=== PATIENT | female | born 1970 | race Caucasian/White ===

== ENCOUNTER 2019-07-29 18:52 | Emergency (ER) | payer SELFPAY ==
[2019-07-29 19:33] VITALS: BP 128/76; PULSE 108; RESP 14; TEMP 37; O2SAT 98
--- NOTE | 2019-07-29 19:39 | ED.URI ---
HPI - URI/Sore Throat General Chief Complaint: Upper Respiratory Infection Stated Complaint: Cough/Body aches/fever Time Seen by Provider: 07/29/19 19:39 Source: patient and RN notes reviewed Mode of arrival: ambulatory Limitations: no limitations History of Present Illness HPI Narrative: 48-year-old female with history of smoking and bronchitis presents with concern for body aches, chills, barking cough that started today. She reports symptoms started with an episode of emesis this morning that she feels like she choked on. She denies rhinorrhea, nasal congestion. Denies take any medications for symptoms MD elicited complaint: cough Related Data Home Medications Medication Instructions Recorded Confirmed venlafaxine [Effexor XR] 75 mg PO DAILY 07/29/19 07/29/19 Allergies Allergy/AdvReac Type Severity Reaction Status Date / Time codeine Allergy Unknown Itching Verified 07/29/19 19:41 Review of Systems Review of Systems: Narrative: CONSTITUTIONAL: Reports malaise, chills, sweats, tactile fever. EYES: Denies visual changes, redness, or discharge. ENT: Denies rhinorrhea, congestion, sinus pain, otalgia and sore throat. CARDIOVASCULAR: Denies chest pain, palpitations, or edema. RESPIRATORY: Reports cough. Denies dyspnea. GASTROINTESTINAL: Denies abdominal pain, nausea, vomiting, diarrhea SKIN: Denies rash or itching. MUSCULOSKELETAL: Reports myalgia. NEUROLOGIC: Denies headache. All systems reviewed & are unremarkable except as noted in HPI and below PMFSH Family History Family History (Updated 10/10/16 @ 09:19 by DOCTOR UNKNOWN) Sibling Family history of schizophrenia Family history of chronic obstructive pulmonary disease Family history of emphysema Mother Depression Family history of Alzheimer's disease Father Family history of lung cancer Other Cerebrovascular accident Diabetes mellitus Family history of allergic disorder Family history of malignant neoplasm Hypertension Social History Social History Smoking status: Current every day smoker Alcohol intake: current Comments At time of signature, agree with nursing past medical, surgical, social and family history. There is no relevant family history pertinent to the presenting complaint Exam Narrative: Exam Narrative: GENERAL: Well-appearing, well-nourished, and in no acute distress. HEAD: Normocephalic EYES: PERRLA, conjunctivae clear ENT: Nares clear, turbinates erythematous, clear discharge. Mucous membranes moist. TM pearly posada with sharp light reflex bilaterally; no tragal tenderness. Oropharynx not erythematous without lesions. Tonsils not enlarged and without exudate, no drooling, no hoarseness, no trismus, uvula midline. NECK: Supple. No lymphadenopathy CHEST: Right upper lobe inspiratory wheeze, otherwise clear to auscultation, breath sounds equal. No wheezing, rhonchi, rales, or stridor. No respiratory distress, speaks in full sentences. HEART: Regular rate and rhythm. No murmur heard. SKIN: Warm, dry, no rash. NEURO: Alert and oriented x3. PSYCH: Normal mood and affect Course Course Emergency Course: Patient is aware of diagnosis, understands and agrees to treatment plan. Anticipatory guidance given. Patient agrees to follow-up as directed and is aware of reasons to seek care at the emergency department. Portions of this record may have been created with voice recognition software Vital Signs Vital signs: Vital Signs Temperature 98.6 F 07/29/19 19:33 Pulse Rate 108 H 07/29/19 19:33 Respiratory Rate 14 07/29/19 19:33 Blood Pressure 128/76 07/29/19 19:33 Pulse Oximetry 98 07/29/19 19:33 Temperature 98.6 F 07/29/19 19:33 Pulse Rate 108 H 07/29/19 19:33 Respiratory Rate 14 07/29/19 19:33 Blood Pressure 128/76 07/29/19 19:33 Pulse Oximetry 98 07/29/19 19:33 Reviewed. Patient has been instructed to follow up with her primary care provider within the next week regarding her elevated
== END 2019-07-29 19:58 | disposition home or self-care (01) ==
PROVIDERS: Emergency Provider Nurse Practitioner; PCP Internal Medicine
DX: R05 Cough (principal); F17.210 Nicotine dependence, cigarettes, uncomplicated; F41.9 Anxiety disorder, unspecified; F32.9 Major depressive disorder, single episode, unspecified
CPT/HCPCS: 87804; 99213; G0463

== ENCOUNTER 2020-07-30 13:02 | Emergency (ER) | payer SELFPAY ==
--- NOTE | ~2020-07-30 | XR_ITS ---
EXAMINATION: XR hand LT min 3V EXAM DATE: 07/30/2020 13:18 INDICATION: Initial encounter following injury, with pain of the left 3rd-5th digits. TECHNIQUE: Left hand frontal, lateral and oblique projections obtained and reviewed. There is no lilly or study for comparison. FINDINGS: Left metacarpal bones are unremarkable. There are no acute fractures or dislocations ident ified. There is no subcutaneous gas. The soft tissue is unremarkable. There are no radiopaque for eign bodies. IMPRESSION: 1. Left hand exam without acute osseous findings. Reviewed, dictated and finalized at location B. [employer]
[2020-07-30 13:06] VITALS: BP 119/77; PULSE 110; RESP 14; TEMP 36.3; O2SAT 97
--- NOTE | 2020-07-30 13:13 | ED.UPPEXIN ---
HPI - Extremity Injury (Upper) General Chief Complaint: Extremity Injury, Upper Stated Complaint: Left hand finger injuries` Source: patient Mode of arrival: ambulatory Limitations: no limitations History of Present Illness HPI narrative: Patient is a 49-year-old female who presents complaining of pain to left hand. Patient reports was lifting when doing cleaning when a window frame fell injuring left hand and fingers. Patient complaining of pain to left third fourth and fifth digits at distal tips. Related Data Home Medications Medication Instructions Recorded Confirmed venlafaxine [Effexor XR] 75 mg PO DAILY 07/29/19 07/30/20 Allergies Allergy/AdvReac Type Severity Reaction Status Date / Time codeine Allergy Unknown Itching Verified 07/30/20 13:13 Review of Systems Review of Systems: Narrative: CONSTITUTIONAL: Denies fever, chills, or sweats. EYES: Denies visual changes, redness, or discharge. ENT: Denies rhinorrhea, congestion, sore throat, or otalgia. CARDIOVASCULAR: Denies chest pain, palpitations, or edema. RESPIRATORY: Denies cough or dyspnea. GASTROINTESTINAL: Denies abdominal pain, nausea, vomiting, or diarrhea. GENITOURINARY: Denies dysuria or hematuria. SKIN: Denies rash or itching. MUSCULOSKELETAL: Pain to left third, fourth and fifth digits. NEUROLOGIC: Denies headache, numbness, dizziness, or weakness. PSYCHIATRIC: Denies anxiety or depression. [facility] Past Medical History Medical History Anxiety Depression Surgical History Surgical History H/O tubal ligation Hx of cholecystectomy Family History Family History Sibling Family history of schizophrenia Family history of chronic obstructive pulmonary disease Family history of emphysema Mother Depression Family history of Alzheimer's disease Father Family history of lung cancer Other Cerebrovascular accident Diabetes mellitus Family history of allergic disorder Family history of malignant neoplasm Hypertension Social History Social History (Updated 07/30/20 @ 13:23 by VITO Yu) Smoking status: Current every day smoker Alcohol intake: current Alcohol use details: occasional Substance use: never Living arrangements: with family Gender identity (if verbalized by the patient): Female Exam Narrative: Exam Narrative: GENERAL: Well-appearing, well-nourished, and in no acute distress. HEAD: Normocephalic, atraumatic. EYES: EOMI. No redness or drainage. Conjunctiva are normal. ENT: Mucous membranes pink and moist. CHEST: No respiratory distress. Clear to auscultation. HEART: Regular rate and rhythm. EXTREMITIES: Mild edema and tenderness with palpation to left third, fourth and fifth fingers. No visible deformity. SKIN: Warm, dry, no rash. NEURO: No focal deficits. Alert and oriented x3. Gait steady. PSYCH: Normal affect. No signs of depression or anxiety. Course Vital Signs Vital signs: Vital Signs Temperature 36.3 C L 07/30/20 13:06 Pulse Rate 110 H 07/30/20 13:06 Respiratory Rate 14 07/30/20 13:06 Blood Pressure 119/77 07/30/20 13:06 Pulse Oximetry 97 07/30/20 13:06 Temperature 36.3 C L 07/30/20 13:16 Pulse Rate 110 H 07/30/20 13:16 Respiratory Rate 14 07/30/20 13:16 Blood Pressure 119/77 07/30/20 13:16 Pulse Oximetry 97 07/30/20 13:16 Reviewed MDM - Extremity Injury (Upper) MDM Narrative Medical decision making narrative: Patient's x-ray show no fracture. Mild swelling noted at distal fourth and fifth digit. Tenderness with palpation. Will splint fourth and fifth digit. Discussed ice, elevation and taking ibuprofen. Patient is to follow-up with her PCP in 3 to 5 days if symptoms persist. Patient is aware if she develops numbness or tingling in the fingers, she should go to the [facility]
[2020-07-30 13:16] VITALS: BP 119/77; PULSE 110; RESP 14; TEMP 36.3; O2SAT 97
== END 2020-07-30 13:38 | disposition home or self-care (01) ==
PROVIDERS: Emergency Provider Nurse Practitioner; PCP Internal Medicine
DX: S60.00XA Contusion of unspecified finger without damage to nail, initial encounter (principal); W20.8XXA Other cause of strike by thrown, projected or falling object, initial encounter; F41.9 Anxiety disorder, unspecified; F32.9 Major depressive disorder, single episode, unspecified
CPT/HCPCS: 29130 ×2; 73130; 99213; G0463

== ENCOUNTER 2021-10-26 14:54 | Emergency (ER) | payer BC, SELFPAY ==
[2021-10-26 15:01] VITALS: BP 124/68; PULSE 105; RESP 16; TEMP 35.9; O2SAT 97
--- NOTE | 2021-10-26 15:11 | ED.URI ---
HPI - URI/Sore Throat General Chief Complaint: Upper Respiratory Infection Stated Complaint: sore throat chest congestion Time Seen by Provider: 10/26/21 15:00 Source: patient Mode of arrival: ambulatory Limitations: no limitations History of Present Illness HPI Narrative: Ms. Grant is a 51-year-old female patient presenting to the clinic today with complaints of sore throat and chest congestion x3 days. She reports that her throat is improving however she has a lot of chest congestion and has a productive cough with some green phlegm. She denies any known exposure to anyone with COVID, flu, or strep. She also reports that she is having some shortness of breath with this congestion. She denies any fever or chills. MD elicited complaint: sore throat and nasal congestion Related Data Home Medications Medication Instructions Recorded Confirmed venlafaxine 75 mg capsule,extended 75 mg PO DAILY 07/29/19 10/26/21 release 24 hr (Effexor XR) atorvastatin 20 mg tablet 20 mg PO DAILY 10/26/21 10/26/21 fenofibrate 160 mg tablet 160 mg PO DAILY 10/26/21 10/26/21 meloxicam 15 mg tablet 15 mg PO DAILY 10/26/21 10/26/21 Allergies Allergy/AdvReac Type Severity Reaction Status Date / Time codeine Allergy Unknown Itching Verified 10/26/21 15:18 Review of Systems Review of Systems: Pertinent positives per HPI. Patient denies any fever, chills, rash, headache, visual changes, dizziness, cough, shortness of breath, chest pain, palpitations, nausea, vomiting, diarrhea, constipation, abdominal pain, or any urinary issues. PMFSH Past Medical History Medical History Anxiety Depression Surgical History Surgical History H/O tubal ligation Hx of cholecystectomy Family History Family History Sibling Family history of schizophrenia Family history of chronic obstructive pulmonary disease Family history of emphysema Mother Depression Family history of Alzheimer's disease Father Family history of lung cancer Other Cerebrovascular accident Diabetes mellitus Family history of allergic disorder Family history of malignant neoplasm Hypertension Social History Social History Smoking status: Current every day smoker Alcohol intake: current Alcohol use details: occasional Substance use: never Gender identity (if verbalized by the patient): Female Comments At the time of my signature, I reviewed and agree with the nursing past medical, surgical, social, and family history. There is no relevant family history pertinent to the patient complaint. Exam Narrative: General: Well-developed, well nourished, in no apparent distress Head: Normocephalic, atraumatic Eyes: Pupils equally round and reactive to light bilaterally, EOM intact, sclera and conjunctive clear, no discharge, lids normal Ears: TMs intact and clear, ear canals clear, no drainage, grossly hearing normal. Nose: Nares patent, clear nasal discharge, mild inflammation, no sinus tenderness. Mouth: Oral pharynx without lesions or masses, good dentition, MMM. Oropharynx red Neck: Supple, trachea midline, no enlargement of anterior or posterior cervical nodes, no thyroid masses or goiter palpable. Cardio: Regular rate and rhythm, s1 and s2 normal, no murmur appreciated. Resp: Clear to auscultation bilaterally, no rhonchi, rales, wheezing or rubs Course Course Emergency Course: Portions of this record may have been created with voice recognition software. Level of Care: Express Care Visit Vital Signs Vital signs: Vital Signs Temperature 35.9 C L 10/26/21 15:01 Pulse Rate 105 H 10/26/21 15:01 Respiratory Rate 16 10/26/21 15:01 Blood Pressure 124/68 10/26/21 15:01 Pulse Oximetry 97
== END 2021-10-26 15:52 | disposition home or self-care (01) ==
PROVIDERS: Emergency Provider Nurse Practitioner Family; PCP Internal Medicine
DX: J06.9 Acute upper respiratory infection, unspecified (principal); Z20.822 Contact with and (suspected) exposure to COVID-19; F17.200 Nicotine dependence, unspecified, uncomplicated; F41.9 Anxiety disorder, unspecified; F32.A Depression, unspecified
CPT/HCPCS: 87081; 87426; 87880; 99213; C9803; G0463

== ENCOUNTER 2022-08-28 17:35 | Emergency (ER) | payer BC, SELFPAY ==
[2022-08-28 17:44] VITALS: BP 131/79; PULSE 109; RESP 18; TEMP 36.4; O2SAT 97
--- NOTE | 2022-08-28 18:01 | ED.URI ---
HPI - URI/Sore Throat General Chief Complaint: Upper Respiratory Infection Stated Complaint: Chest Congestion Source: patient and RN notes reviewed History of Present Illness HPI Narrative: 51-year-old male presents to urgent care with complaints of worsening congestion and cough over the last couple weeks. Patient states she had same symptoms approximately 3 weeks ago where she was seen at her primary care physician's office and given a Z-Charlie. Patient states her symptoms resolved after the back the patient went to [place] 2 days later and her symptoms started again. Patient presents with congestion, facial pressure, cough that is worse at nighttime and with laying down. Denies any fevers, chills, or chest pain. Patient does report some shortness of breath. Patient has been taking [id number] medication without any relief. Some parts of this dictation were generated by voice recognition software and may contain typographical and/or grammatical inaccuracies. Related Data Home Medications Medication Instructions Recorded Confirmed venlafaxine 75 mg capsule,extended 75 mg PO DAILY 07/29/19 10/26/21 release 24 hr (Effexor XR) Allergies Allergy/AdvReac Type Severity Reaction Status Date / Time codeine Allergy Unknown Itching Verified 10/26/21 15:18 Review of Systems Review of Systems: Pertinent positives and pertinent negatives per HPI. [facility] Past Medical History Medical History Anxiety Depression Surgical History Surgical History H/O tubal ligation Hx of cholecystectomy Family History Family History Sibling Family history of schizophrenia Family history of chronic obstructive pulmonary disease Family history of emphysema Mother Depression Family history of Alzheimer's disease Father Family history of lung cancer Other Cerebrovascular accident Diabetes mellitus Family history of allergic disorder Family history of malignant neoplasm Hypertension Social History Social History Smoking status: Current every day smoker Alcohol intake: current Alcohol use details: occasional Substance use: never Living arrangements: with family Gender identity (if verbalized by the patient): Female Comments At the time of my signature, I reviewed and agree with the nursing past medical, surgical, social, and family history. There is no relevant family history pertinent to the patient complaint. Exam Narrative: GENERAL: This is a well-nourished, well-developed patient, in no apparent distress. HEAD: normocephalic, atraumatic. EYES: Sclera clear/white. Vision is grossly intact. EARS: External ears normal, auditory canals clear and without drainage. Hearing grossly intact. NOSE: congested. THROAT: Mucous membranes moist, posterior pharynx clear. NECK: Neck supple, non-tender without lymphadenopathy, masses or thyromegaly. CARDIOVASCULAR: Regular rate and rhythm without murmurs, gallops, or rubs. RESPIRATORY: Clear to auscultation. Breath sounds equal bilaterally. No wheezes, rales, or rhonchi. pt occasionally coughing during exam. SKIN: warm, intact with no suspicious lesions or rash, good texture and turgor. NEURO: awake, alert, and oriented to person, place and time. There were no obvious focal neurologic abnormalities. Course Course Level of Care: Express Care Visit Vital Signs Vital signs: Vital Signs Temperature 97.6 F 08/28/22 17:44 Pulse Rate 109 H 08/28/22 17:44 Respiratory Rate 18 08/28/22 17:44 Blood Pressure 131/79 08/28/22 17:44 Pulse Oximetry 97 08/28/22 17:44 Oxygen Delivery Room Air 08/28/22 17:44 Temperature 97.6 F 08/28/22 17:44 Pulse Rate 109 H 08/28/22 17:44 Respiratory Rate 18 08/28/22 17:44 B
== END 2022-08-28 18:08 | disposition home or self-care (01) ==
PROVIDERS: Emergency Provider Nurse Practitioner Family; PCP Internal Medicine
DX: J40 Bronchitis, not specified as acute or chronic (principal); J32.9 Chronic sinusitis, unspecified; F17.200 Nicotine dependence, unspecified, uncomplicated; F41.9 Anxiety disorder, unspecified; F32.A Depression, unspecified
CPT/HCPCS: 99213; G0463